=== PATIENT | male | born 1995 | race Caucasian/White ===

== ENCOUNTER 2020-03-30 08:30 | Emergency (ER) | payer SELFPAY ==
[2020-03-30 08:31] VITALS: BP 133/83; PULSE 85; RESP 16; TEMP 36.1; O2SAT 100; BMI 30.9
--- NOTE | 2020-03-30 09:07 | ED.DCSUM_ITS ---
History of Present Illness Chief Complaint: Depression Informant: Patient Onset: - - since age 13 Context: at baseline Conflict: Financial, - - friends are gone Current Severity: Moderate Maximum Severity: Moderate Worsened by: Situational factors Relieved by: not by counseline Associated Symptoms: Depressed, Decreased Concentration, Hopelessness, Suicidal Thoughts. Negative for: Change in Eating, Change in sleeping - sleeping well, Hostile, Threatening, Confusion, Paranoia, Visual Hallucinations, Auditory Hallu cinations Specific plan (suicidal thought): none Narrative: Patient states he has been feeling depressed and having thoughts of self-harm since he was 13 years old. He states nothing is really changed. He has seen someone at the counseling center 2 or 3 times in the past month or 2 since starting there and he states since the sessions have not seem to make a big difference and he still feels hopeless, he came to the ER hoping for something better. He states he is not wanting to harm himself or act on any thoughts, but does have thoughts of harming himself since he feels like things are hopeless for him. He has a job but it does not pay well, he recently switched to morning shifts at this job so he is sleeping well and taking melatonin which is helping. He is eating okay. He does not have suicidal ideation. He does not use any illicit substances, he rarely drinks alcohol and has not had any recently, he smokes marijuana on occasion but no cigarettes/tobacco. He denies any recent illness or exposure to COVID-19 that he knows of. He talk to the counselor on for crisis on the way to the ER today. He states he has a psychiatry appointment 3 days from now, he currently takes no medications nor has been prescribed any antidepressants. - Past Medical History (1) Depression Status: Chronic Past Medical History - Allergies and Home Meds Allergies/Adverse Reactions: Allergies Penicillins [PCN] Allergy (Verified 03/30/20 08:30) Hives Sulfa (Sulfonamide Antibiotics) Allergy (Verified 03/30/20 08:30) Hives Primary Care Physician: NOT,DEFINED [Primary Care Provider] - Review of Systems General: Denies: Chills, Fever, Sweats Eyes: Denies: Visual changes - bilaterally, Diplopia ENT: Denies: Rhinorrhea, Sore throat Cardiovascular: Denies: Chest pain, Palpitations Respiratory: Denies: Dyspnea, Cough, Dyspnea on exertion Gastrointestinal: Denies: Abdominal pain, Nausea, Vomiting, Diarrhea, Melena, Hematochezia Genitourinary: Denies: Dysuria, Hematuria, Frequency Musculoskeletal: Denies: Back pain, Extremity Pain Skin: Denies: Rash, Wounds Neurological: Denies: Headache, Weakness, Numbness Psych: Reports: Depression, Suicidal thoughts. Denies: Suicidal ideations Physical Exam Vital Signs/Narrative: Vital Signs Temp Pulse Resp BP Pulse Ox 03/30/20 08:31 97 F L 85 16 133/83 H 100 Inital Vital Signs reviewed: Yes General: Well nourished, Well developed, - - well-appearing, nad Head: Normocephalic, Atraumatic Eyes: Perrl, EOMI ENT: Moist mucous membranes, No rhinorrhea Neck: Supple, Nontender Cardiovascular: Regular rate, Regular rhythm, No murmurs Respiratory: No distress, CTA bilaterally, Chest nontender Abdomen: Soft, Nontender, Nondistended, Normal bowel sounds Back: Nontender, Normal Inspection Extremities: Nontender, No Edema Skin: Normal color, No rash Neurological: Alert, Oriented x3, Cranial nerves II-XII grossly intact, Normal Strength, Normal Sensation, Normal Gait Psych: Normal Speech Pattern, Logical sequential goal directed thoughts, No suicidal or homicidal ideation, Normal Stable Appropriate Affect, Good Insight, Good Judgement, Suicidal thoughts. Negative for: Homicidal thoughts, Hallucinations, Delusions Diagnostic/Tx/Re-eval I spoke with the crisis counselor, she was the one who spoke with him. She got the same history that I did. She wanted an alcohol level to talk with him here I do not think that is necessary, so she talked with him, scheduled an outpatient emergency counseling session for today, and then he will see a psychiatrist in 3 days at the appointment then so I do not think prescribing him any antidepressant is necessary at this time. Patient was comfortable with that plan and contracts for safety. ED Disposition - Plan for ED Patient: Disposition: Home or Assisted Living Diagnosis: Depression, Suicidal thoughts Instructions: ED Depression Referrals: Counseling,Center [GROUP OF PHYSICIANS] -
[2020-03-30 09:38] VITALS: PULSE 88; RESP 17; O2SAT 100
== END 2020-03-30 09:42 | disposition home or self-care (01) ==
PROVIDERS: Emergency Provider Emergency Medicine
DX: F32.9 Major depressive disorder, single episode, unspecified (principal); R45.851 Suicidal ideations
CPT/HCPCS: 99282

== ENCOUNTER 2020-12-11 17:59 | Emergency (ER) | payer MEDICAID, SELFPAY ==
[2020-12-11 18:00] VITALS: BP 130/69; PULSE 99; RESP 18; TEMP 36.5; O2SAT 96; BMI 30.9
--- NOTE | 2020-12-11 19:13 | ED.RN ---
pt had 15 to 30 second syncopal episode short after the iv was inserted. pt awake and oriented afterward. pt placed on convex grinder operator
--- NOTE | 2020-12-11 19:28 | EX.ED.DYSGE1 ---
HPI History of Present Illness Chief Complaint: GI Bleed Informant: patient Narrative Narrative: Patient is a 25-year-old male with a past medical history of bipolar disorder who presents to the ED for blood in his stool. He is also having 5 out of 10 diffuse abdominal pain. He states he does have a history of hemorrhoids but typically that blood is a lot brighter. He states that this blood was more dark. He denies any black or tarry stools. His initial symptoms started yesterday. He did have one clot passed when wiping today. He denies any nausea or vomiting. No fevers or chills. He has not been taking anything for this. No previous abdominal surgeries. He has not had any chest pain, shortness of breath or lightheadedness. No history of ulcerative colitis, Crohn's or celiac disease in himself or family. He denies any alcohol use. No known aggravating or relieving factors. He states last week he was having some loose stools, this week he has felt more constipated and has had some straining to have bowel movements. [facility] Medical History (Updated 12/11/20 @ 20:[address] Eliud King DO) Bipolar 2 disorder Home Medications docusate sodium [Colace] 100 mg PO BID #20 cap 12/11/20 [Rx Last Taken Unknown] docusate sodium [Colace] 100 mg PO BID 7 Days #14 cap 12/11/20 [Rx Last Taken Unknown] lamotrigine [Lamictal] 200 mg PO DAILY 12/11/20 [History Last Taken Unknown] Allergy/AdvReac Type Severity Reaction Status Date / Time Penicillins [PCN] Allergy Hives Verified 12/11/20 18:01 Sulfa (Sulfonamide Allergy Hives Verified 12/11/20 18:01 Antibiotics) Social History Smoking Status: Current every day smoker tobacco type: e-cigarettes ROS ROS ED Constitutional Constitutional ED: Denies chills or fever(s) Eyes Eyes: Denies change in vision ENT ENT ED: Denies epistaxis or rhinorrhea Cardiovascular Cardiovascular: Denies chest pain or palpitations Respiratory/Chest Respiratory/Chest: Denies cough, dyspnea or dyspnea on exertion Gastrointestinal Gastrointestinal: Reports abdominal pain and constipation; Denies diarrhea, melena, nausea or vomiting Genitourinary Genitourinary ED: Denies dysuria, hematuria or urinary frequency Musculoskeletal Musculoskeletal: Denies back pain or neck pain Integumentary Denies rash Neurologic Neurologic: Denies dizziness, headache(s) or weakness EXAM Physical Exam Const Vital Signs: 12/11/20 18:00 12/11/20 20:39 Temperature 97.7 F L Temperature Source Temporal Pulse Rate 99 77 Respiratory Rate 18 20 H Blood Pressure 130/69 H 106/65 Blood Pressure Mean 89 Pulse Ox 96 99 Oxygen Delivery Method Room Air Positive well nourished and well developed General Appearance ED: well developed and NAD HEENT Reports normocephalic, head/scalp atraumatic and moist mucous membranes Eyes PERRL and EOMs intact bilaterally Neck supple Resp normal respiratory effort and clear to auscultation bilaterally Auscultation: Negative for rales, rhonchi or wheezes Cardio regular rate, regular rhythm and no murmurs GI normal to inspection, nondistended, normoactive bowel sounds GI Narrative: Mild tenderness to deep palpation diffusely. Rectal exam did show a nonthrombosed external hemorrhoid. No active bleeding. No blood per rectum. No obvious fissures or abscesses present. Palpation: soft; Negative for guarding or rebound tenderness present Back/Spine no CVA tenderness Extremity normal to inspection General Extremety ED: Negative for edema or tenderness General Extremity: Negative for edema Neuro no sensory deficits noted Sensorium / Orientation: alert Motor Exam: strength 5/5 throughout Psych mental status grossly normal Skin no rashes or lesions noted MDM MDM MDM Narrative Medical decision making narrative: Patient presents the ED for moderate diffuse abdominal pain. He is a benign physical exam except for mild tenderness. He is also been having some blood in his stool since yesterday. Upon arrival to the emergency department vital signs within normal limits. He is in no acute distress. Will check basic lab work. Patient's lab work does not reveal any significant acute abnormality. His white blood cell count is within normal limits. Liver enzymes within normal limits. His normal kidney function. No acute electrolyte disturbance. He is not anemic. On reexamination he is resting comfortably. Patient most likely having constipation and this caused some rectal bleeding. We will place him on Colace. I do not feel imaging is necessary at this time. He is to follow-up with his PCP. If he develops any worsening pain, systemic symptoms or worsening bleeding he is to return to the emergency department. This time he is discharged in stable condition. Return precautions are reviewed. All questions were answered. Lab Data Labs: Laboratory Results - last 24 hr 12/11/20 12/11/20 19:09 19:09 WBC 5.6 RBC 4.93 Hgb 15.4 Hct 43.8 MCV 88.8 MCH 31.2 MCHC 35.2 RDW Std Deviation 40.6 RDW Coeff of Carmen 12.5 Plt Count 176 MPV 10.6 Immature Gran % (Auto) 0.200 Neut % (Auto) 71.5 H Lymph % (Auto) 21.2 Zavala % (Auto) 6.2 Eos % (Auto) 0.5 Baso % (Auto) 0.4 Absolute Neuts (auto) 4.0 Absolute Lymphs (auto) 1.19 Nucleated RBC % 0 Sodium 141 Potassium 3.9 Chloride 106 Carbon Dioxide 30.0 Anion Gap 5 BUN 8 Creatinine 1.07 Estim Creat Clear Calc 117.19 Est GFR (MDRD) Af Amer 106 Est GFR (MDRD) Non-Af 88 BUN/Creatinine Ratio 7.5 L Glucose 91 Calcium 8.7 Total Bilirubin 0.90 AST 15 ALT 23 Alkaline Phosphatase 52 Total Protein 7.2 Albumin 4.3 Globulin 2.9 Albumin/Globulin Ratio 1.5 Lipase 163 Discharge Plan Triage Chief Complaint: GI Bleed ED Provider: Eliud King Dx/Rx/DC Orders Clinical Impression: Rectal bleeding Instructions: ED Lower GI Bleeding (Stable) Prescriptions: New docusate sodium [Colace] 100 mg capsule 100 mg PO BID 7 Days Qty: 14 RF: 0 docusate sodium [Colace] 100 mg capsule 100 mg PO BID Qty: 20 RF: 0 No Action lamotrigine [Lamictal] 200 mg tablet 200 mg PO DAILY RF: 0 Stand Alone Forms: ED Work / School Excuse Primary Care Provider: Urvashi Kennedy Referrals: Urvashi Kennedy, [Primary Care Provider] - 3-5 Days if not improving Disposition Disposition: Home, Self Care Discharge Date/Time: 12/11/20 20:39
[2020-12-11 19:31] LABS: Absolute Lymphocyte Count 1.19 X10^3/uL (0.83-4.51); Basophil# 0.02 X10^3/uL; Basophil% 0.4 % (0-1); Eosinophil# 0.03 X10^3/uL; Eosinophils% 0.5 % (0-5); Hematocrit 43.8 % (40-54); Hemoglobin 15.4 g/dL (13.0-16.5); Lymphocyte # 1.19 X10^3/ul (0.83-4.51); Lymphocyte % 21.2 % (19-41); Mean Corp Hgb Conc 35.2 g/dL (32-36); Mean Corpuscular Hgb 31.2 pg (27.0-32.0); Mean Corpuscular Volume 88.8 fL (80-94); Mean Platelet Vol. 10.6 fl (6.2-12.0); Monocyte# 0.35 X10^3/uL; Monocyte% 6.2 % (0-10); NRBC Flagged by Analyzer 0 % (0-5); Neutrophil # 4.02 X10^3/uL (2.7-7.7); Neutrophil % 71.5 % (47-70); Platelet Count 176 K/mm3 (150-450); RBC Distribution Width CV 12.5 % (11.6-14.6); RBC Distribution Width SD 40.6 fl (35.1-43.9); Red Blood Count 4.93 M/mm3 (4.6-6.2); White Blood Count 5.6 K/mm3 (4.4-11.0)
[2020-12-11 19:47] LABS: ALB/GLOB Ratio 1.5 RATIO (0.9-2.4); AST(SGOT) 15 U/L (15-37); Alanine Aminotransfer ALT/SGPT 23 U/L (16-61); Albumin, Serum 4.3 g/dL (3.2-5.0); Alkaline Phosphatase 52 U/L (45-117); Anion Gap 5 (5-15); BUN 8 mg/dL (7-18); BUN/Creat Ratio 7.5 RATIO (10-20); Calcium,Total 8.7 mg/dL (8.5-10.1); Chloride 106 mmol/L (98-107); Creatinine, Serum 1.07 mg/dL (0.70-1.30); EST Glomerular Filtration Rate 88 mL/min (>60); Est Glom Filt Rate - Afr Amer 106 mL/min (>60); Estimated Creatinine Clearance 117.19 ml/min; Globulin 2.9 g/dL (2.2-4.2); Glucose 91 mg/dL (74-106); Lipase 163 U/L (73-393); Potassium 3.9 mmol/L (3.5-5.1); Protein, Total 7.2 g/dL (6.4-8.2); Sodium Level 141 mmol/L (136-145)
[2020-12-11 20:39] VITALS: BP 106/65; PULSE 77; RESP 20; O2SAT 99
== END 2020-12-11 20:39 | disposition home or self-care (01) ==
PROVIDERS: Emergency Provider Emergency Medicine
DX: K62.5 Hemorrhage of anus and rectum (principal); F17.290 Nicotine dependence, other tobacco product, uncomplicated
CPT/HCPCS: 80053; 83690; 85025; 99283; A4216